=== PATIENT | female | born 1995 | race Caucasian/White ===

== ENCOUNTER 2018-04-11 00:28 | Emergency (ER) | payer BC ==
[~2018-04-11] VITALS: Ht 172.7 cm; Wt 93.0 kg
[2018-04-11 00:50] LABS: URINE HCG NEGATIVE (NEG)
[2018-04-11 00:51] LABS: CLARITY,URINE SLIGHTLY CLOUDY (Clear); COLOR,URINE YELLOW (Yellow); GLUCOSE, URINE NEGATIVE (Neg); KETONES,URINE NEGATIVE (Neg); LEUKOCYTE ESTERASE ,URINE LARGE (Neg); NITRITES, URINE NEGATIVE (Neg); OCCULT BLOOD,URINE LARGE (Neg); PROTEIN,URINE NEGATIVE (Neg); UROBILINOGEN,URINE 0.2 E.U/dL (0.2-1.0)
[2018-04-11 00:53] LABS: UA COLLECTION TYPE CLN CATCH MIDSTREAM
[2018-04-11] MEDS ORDERED: ciprofloxacin 250mg tablet PO ONE (01:10)
[2018-04-11 01:26] LABS: RBC,URINE 0-2 /HPF (0-2); WBC,URINE 20-30 /HPF (0-4)
[2018-04-11 01:27] LABS: BACTERIA,URINE FEW /HPF (Neg); MUCUS STRANDS NONE SEEN /LPF (Neg); SQUAMOUS EPITHELIAL CELL,UR FEW /LPF (FEW); WBC CLUMPS,URINE FEW /HPF (NEGATIVE)
[2018-04-11] MEDS ORDERED: CIPR-230 PO (01:45)
[2018-04-11] MEDS ORDERED: PHEN-716 PO (01:46)
[2018-04-11 01:56] VITALS: BP 125/71
[2018-04-12] MEDS ORDERED: BACDS PO (21:27)
== END 2018-04-11 01:58 | disposition home or self-care (01) ==
LOC: ER 00:29
DX: N39.0 Urinary tract infection, site not specified (principal); Z79.2 Long term (current) use of antibiotics; Z79.899 Other long term (current) drug therapy
CPT/HCPCS: 81001; 81025; 87077; 87088; 87186; 99283

== ENCOUNTER 2018-04-12 21:03 | Emergency (ER) | payer BC, OTHER ==
[~2018-04-12] VITALS: Ht 172.7 cm; Wt 80.0 kg
[~2018-04-12 21:03] MED LIST: CIPR-230 PO; PHEN-716 PO
[2018-04-12 21:16] VITALS: BP 139/85
[2018-04-12] MEDS ORDERED: BACDS PO (21:27)
[2018-04-15] MEDS ORDERED: ACET-3067 PO (01:53)
[2018-04-15] MEDS ORDERED: ONDA4TAB12 PO (01:53)
== END 2018-04-12 21:46 | disposition home or self-care (01) ==
LOC: ER 21:04
DX: N39.0 Urinary tract infection, site not specified (principal); T36.8X5A Adverse effect of other systemic antibiotics, initial encounter; Z79.899 Other long term (current) drug therapy; Y92.89 Other specified places as the place of occurrence of the external cause
CPT/HCPCS: 99283

== ENCOUNTER 2024-03-10 09:20 | Emergency (ER) | payer MEDICAID, OTHER ==
[~2024-03-10] VITALS: Ht 172.7 cm; Wt 93.6 kg
[~2024-03-10 09:20] MED LIST changes: -CIPR-230 PO; +ONDA-243 PO
[2024-03-10 09:25] VITALS: BP 136/73; PULSE 78; TEMP 98.1; O2SAT 96
[2024-03-10] MEDS: ketorolac trometh 15mg/ml vial 15 MG/ML ML IM ONE (11:59)
[2024-03-10 12:18] VITALS: RESP 14
[2024-03-10] MEDS ORDERED: IBUP-1984 PO (12:48)
== END 2024-03-10 12:58 | disposition home or self-care (01) ==
LOC: ER 09:21
DX: E28.2 Polycystic ovarian syndrome (principal); Z79.1 Long term (current) use of non-steroidal anti-inflammatories (NSAID); Z79.899 Other long term (current) drug therapy
CPT/HCPCS: 96372; 99283; J1885; A4353